=== PATIENT | male | born 1970 | race Caucasian/White ===

== ENCOUNTER 2023-11-17 17:00 | Emergency (ER) | payer BC, SELFPAY ==
[2023-11-17 17:21] VITALS: BP 149/91; PULSE 119; RESP 18; TEMP 37.6; O2SAT 95; BMI 25.8
--- NOTE | 2023-11-17 17:32 | XRR_ITS ---
PROCEDURE INFORMATION: Exam: XR Chest Exam date and time: 11/17/2023 6:15 PM Age: 53 years old Clinical indication: Cough and fever and wheezing; Patient HX: Fever; Cough; Congestion TECHNIQUE: Imaging protocol: Radiologic exam of the chest. Views: 2 views. COMPARISON: CR (CHEST, ) 11/17/2023 5:40 PM FINDINGS: Lungs: Unremarkable. No consolidation. Pleural spaces: Unremarkable. No pleural effusion. No pneumothorax. Heart/Mediastinum: Unremarkable. No cardiomegaly. Bones/joints: Unremarkable. XR/XR chest 2V* [id number] IMPRESSION: No acute findings.
[2023-11-17] MEDS: ibuprofen 600 mg Tablet PO (17:49)
[2023-11-17] MEDS: sodium chloride 0.9% 1,000 ML 999 ML IV ×2 (17:49→20:38)
[2023-11-17 17:50] LABS: Rapid Strep A Test Negative (Negative)
[2023-11-17 17:54] LABS: SARS Covid-2 Antigen negative (Negative)
--- NOTE | 2023-11-17 17:58 | ED_ITS ---
HPI - Fever 2 General: Chief Complaint: Fever Stated Complaint: Fever,congetstion Time Seen by Provider: 11/17/23 17:19 History of Present Illness: Mr. Medina is a 53-year-old man that presents to the emergency department with fever, cough, headache and body aches. Onset of symptoms 11/13. Patient states this started with a headache and bodyaches and quickly developed a fever. He has been treating the fever with ibuprofen and Tylenol but today he ran a fever in spite of Tylenol and ibuprofen. Patient is also developed a sore throat today. He denies productive cough He denies chest pain Denies abdominal pain, nausea vomiting or diarrhea. Patient's medical history includes hypertension. Denies cardiovascular disease, chronic pulmonary disorders, or renal dysfunction. Associated symptoms: Deny abdominal pain, chills, chest pain, confusion, diarrhea, dysuria, extremity pain, headache(s), nasal congestion, nausea, sinus pain or vomiting Review of Systems 2 General: Reports: 10 or more systems reviewed and unremarkable except in HPI and below Const: Reports: fever(s), body aches, change in appetite and fatigue; Denies: chills, change in weight or malaise ENMT: Reports: throat pain, hoarseness and nasal discharge; Denies: ear or mastoid pain, ear discharge, change in hearing, tinnitus, nasal congestion, post nasal drip or sinus pain Card: Denies: chest pain, palpitations, irregular heart rhythm, edema, dyspnea on exertion, orthopnea or leg pain with exertion Resp: Reports: non-productive cough and chest congestion; Denies: dyspnea, productive cough, wheezing or stridor GI: Denies: abdominal pain, nausea, vomiting, diarrhea, constipation, bloating or GI cramping : Denies: dysuria, urinary frequency or urinary urgency Musc: Denies: neck pain, back pain, extremity pain, joint pain or muscle weakness Skin/Breast: Denies: rash or pruritus Neuro: Denies: headache(s), dizziness or confusion Endo: Denies: polyuria, polydipsia or tired all the time Tanner/Lymph: Denies: easy bruising or easy bleeding Physical Exam 2 Const: COMMON NORMALS: no acute distress, patient oriented x3 and alert G ENERAL APPEARANCE: cooperative ORIENTATION/CONSCIOUSNESS: Yes awake, Yes oriented to person, Yes oriented to place and Yes oriented to time HENMT: COMMON NORMALS: normocephalic and atraumatic HEAD & SCALP: n ormocephalic and atraumatic FACE & SINUS: normal facial exam MOUTH: Normal oral and palatal mucosa present Eye: COMMON NORMALS: Equal, round and reactive pupils present, EOMs intact bilaterally, conjunctivae normal and no scleral icterus GENERAL EYE: a ppearance normal, both eyes and all related structures ALIGNMENT: Yes alignment normal PERIORBITAL: periorbital findings normal CONJUNCTIVA: Yes conjunctivae normal PUPIL: Yes Equal, round and reactive pupils present Neck/C-Spine: COMMON NORMALS: full ROM GENERAL: Yes normal visual inspection Lymph: LYMPHATIC: no lymphadenopathy noted Chest: COMMONS NORMALS: normal inspection of the chest Breast/axilla inspection: Yes no chest deformity, asymmetry, normal contours, no nodules, masses, tenderness Resp: COMMON NORMALS: normal respiratory effort, No retractions, No use of accessory muscles and clear to auscultation bilaterally EFFORT & INSPECTION: Yes able to speak in complete sentences and Yes symmetric chest movement A USCULTATION: clear to auscultation bilaterally Cardio: COMMON NORMALS: regular rate, regular rhythm and Peripheral pulses 2+ throughout RATE: regular rate RHYTHM: regular rhythm PERIPHERAL PULSES: Peripheral pulses 2+ throughout GI: COMMON NORMALS: Normal to inspection, nondistended, normoactive bowel sounds present, Soft to palpation, non-tender and No hepatosplenomegaly present INSPECTION: Yes normal to inspection AUSCULTATION: Yes normoactive bowel sounds PALPATION: Yes Soft to palpation and Yes No hepatosplenomegaly present RECTAL EXAM: Yes deferred Extremity: COMMON NORMALS: normal to inspection GENERAL: Yes normal exam except as noted Neuro: COMMON NORMALS: patient oriented x3 SENSORIUM/ORIENTATION: Yes alert, Yes oriented to person, Yes oriented to place and Yes oriented to time CRANIAL NERVES: Yes CN normal except as noted Psych: COMMON NORMALS: mental status grossly normal, Normal thought process present, cooperative, activity/motor behavior normal, denies homicidal ideation and denies suicidal ideation THOUGHT PROCESS: Normal thought process present Skin: COMMON NORMALS: no rashes or lesions noted, no wounds and turgor normal GENERAL SKIN EXAM: no rashes or lesions noted and turgor normal Course 2 Vital Signs: Vital signs: Vital Signs Temperature 99.7 F H 11/17/23 17:21 Pulse Rate 120 H 11/17/23 18:22 Respiratory Rate 18 11/17/23 18:22 Blood Pressure 135/85 11/17/23 18:22 Pulse Oximetry 96 11/17/23 18:22 Oxygen Delivery Me thod Room Air 11/17/23 18:22 MDM - Fever Medical Decision Making Patient was evaluated in the emergency department today for upper respiratory illness complaints. Differential diagnosis includes: influenza, COVID, bronchiolitis, pneumonia Patient underwent diagnostic testing that included a chest x-ray, influenza and COVID testing. Chest x-ray reveals no acute finding Influenza be positive. It has been 4 days since onset of symptoms and at this point I do not think Tamiflu would be of any use for him. I talked with patient about using [id number]-woq-[id number] remedies such as Mucinex and decongestants. Advised him to continue ibuprofen and acetaminophen for fever control. He should rest and drink plenty of fluids He did receive 1 L bolus However, patient remains tachycardic. In speaking with patient about his tachycardia and he reported to me that through the night he was alerted by his Fitbit to tachycardia at a rate of 180 beats a minute. EKG was obtained revealed sinus tachycardia without ectopy, ST elevation or abnormal T wave inversion. A second liter of normal saline was ordered as well as a CBC and CMP to evaluate for electrolyte disturbances. CBC and CMP did not reveal any leukocytosis or anemias. His platelet count with mildly low at 151,000. There is no electrolyte abnormality. Patient heart rate did continue to come down after second liter. Sitting right around 100 but heart rate increases to 109 after ambulation. He denies any shortness of breath with increased activity. He remains afebrile I have given the patient options of having more fluids and longer observation versus going home and increasing his fluids. He is elected to discharge home where he will increase his fluids and take [id number] remedies for symptoms. Initially the chest x-ray was read as negative; however, the imaging was reviewed and there is concern for patchy opacity in the bases that could represent atelectasis or infiltrate. Going to send the patient home on a prescription of doxycycline for secondary bacterial pneumonia. Patient is to return to the emergency department for new concerning or worsening symptoms Lab Data 11/17/23 20:28 11/17/23 20:28 Radiology Impressions Chest X-Ray 11/17/23 17:32 IMPRESSION: No acute findings. ADDENDUM: 11/17/23 1843 There is a streaky opacity on lateral view overlying the lung bases which may reflect atelectasis or infiltrate. Laboratory Results WBC 7.40 10^3/uL (3.29-11.43) 11/17/23 20: RBC 4.88 10^6/uL (3.85-5.65) 11/17/23 20: Hgb 14.70 g/dL (11.27-16.99) 11/17/23 20: Hct 43.6 % (37-53) 11/17/23 20: MCV 89.3 fl (82-101) 11/17/23 20: MCH 30.1 pg (27-33) 11/17/23 20: MCHC 33.7 g/dL (30-55) 11/17/23 20: RDW 11.9 % (12.1-15.1) L 11/17/23 20: Plt Count 151 10^3/cmm (157-399) L 11/17/23 20: MPV 9.5 fL (7.4-10.4) 11/17/23 20: Neut % (Auto) 80.1 % 11/17/23 20: Lymph % (Auto) 7.6 % 11/17/23 20: Gosper % (Auto) 11.6 % 11/17/23 20: Eos % (Auto) 0.3 % 11/17/23 20: Baso % (Auto) 0.1 % 11/17/23: Neut # (Auto) 5.93 10^3/uL (1.8-7.7) 11/17/23 20: Lymph # (Auto) 0.6 10^3/uL (0.8-4.8) L 11/17/23 20: Gosper # (Auto) 0.9 10^3/uL (0.2-0.9) 11/17/23 20: Eos # (Auto) 0.0 10^3/uL (0.0-0.8) 11/17/23 20: Baso # (Auto) 0.0 10^3/uL (0.0-0.1) 11/17/23 20:28 Nucleated RBC % (auto) 0 % 11/17/23 20: Nucleated RBCs # 0.0 /100WBC 11/17/23 20:28 Sodium 138 mmol/L (136-145) 11/17/23 20:28 Potassium 3.8 mmol/L (3.5-5.1) 11/17/23 20: Chloride 103 mmol/L (98-107) 11/17/23 20:28 Carbon Dioxide 25 mmol/L (22-29) 11/17/23 20:28 Anion Gap 13.8 (5-19) 11/17/23 20:28 BUN 7 mg/dL (6-20) 11/17/23 20:28 Creatinine 0.8 mg/dL (0.7-1.2) 11/17/23 20:28 GFR Calculation 101.9 mL/min (90-130) 11/17/23 20:28 Glucose 113 mg/dL (65-115) 11/17/23 20:28 Calculated Osmolality 285 mOsm/kg (285-295) 11/17/23 20:28 Calcium 8.4 mg/dL (8.5-10.5) L 11/17/23 20:28 Total Bilirubin 0.4 mg/dL (0.15-1.2) 11/17/23 20:28 AST 16 U/L (0-40) 11/17/23 20:28 ALT 11 U/L (0-41) 11/17/23 20:28 Alkaline Phosphatase 74 U/L (40-130) 11/17/23 20:28 Total Protein 6.8 g/dL (6.6-8.7) 11/17/23 20:28 Albumin 4.1 g/dL (3.5-5.2) 11/17/23 20:28 Globulin 2.7 g/dL (1.3-4.6) 11/17/23 20:28 Influenza Type A Ag Negative (Negative) 11/17/23 17:28 Influenza Type B Ag Positive (Negative) H 11/17/23 17:28 SARS-CoV-2 Ag (Rapid) negative (Negative) 11/17/23 17:28 Group A Strep Rapid Negative (Negative) 11/17/23 17:28 All radiology interpretation(s) finalized by discharge Discharge Plan Discharge Patient Disposition: Home Clinical Impression: Influenza Pneumonia Qualifiers: Pneumonia type: due to unspecified organism Laterality: bilateral Lung location: unspecified part of lung Qualified Code(s): J18.9 - Pneumonia, unspecified organism Condition: Stable Prescriptions: New doxycycline hyclate 100 mg tablet 100 mg PO BID 7 Days Qty: 14 0RF Discharge Orders: Discharge ED (Routine); Ordered 11/17/23 Ordered By: Davion Mayes Discharge Diet: Advance as tolerated Discharge Activity: Resume usual activity Patient Instructions: Pain Management, Influenza (ED), Pneumonia (ED) Activity Restrictions/Additional Instructions: Please continue to push fluids. Please use vzhx-ffd-[id number] remedies such as Tylenol Cold and flu, Sudafed or Mucinex to help with cough and congestion Please monitor your heart rate. Return to the emergency department for sustained tachycardia. Please use Tylenol and Motrin for fevers, body aches, headache I provided a prescription of doxycycline history of chest x-ray was reevaluated and the radiologist believes that he might have an area that could be the start of pneumonia. You are going to take doxycycline twice a day for the next 7 days. Please return to the emergency department if you develop any worsening symptoms Coding Level of Care Code ED [employer] for Larry Duran
[2023-11-17 18:16] LABS: Influenza A by IFA Negative (Negative); Influenza B by IFA Positive (Negative)
[2023-11-17 18:22] VITALS: BP 135/85; PULSE 120; RESP 18; O2SAT 96
[2023-11-17] MEDS: acetaminophen 500 mg Tablet 1000 MG PO (19:10)
--- NOTE | 2023-11-17 20:03 | ECG_ITS ---
[facility] Test Date: 2023-11-17 Pat Name: Vitaliy Medina Department: Room: Gender: Male [place]: : 1970 Requested By: Davion Galindo Order Number: [id number] Dora MD: Waqas Odom M.D. Measurements Intervals Circle Rate: 120 P: 37 ND: 173 QRS: 18 QRSD: 89 T: 20 QT: 293 QTc: 415 Interpretive Statements SINUS TACHYCARDIA No previous ECG available for comparison Electronically Signed On 11-18-2023 13:32:35 [facility] by Waqas Odom M.D. [email or web address]
[2023-11-17 20:33] LABS: Basophils % 0.1 %; Eosinophils % 0.3 %; Hematocrit 43.6 % (37-53); Lymphocytes # 0.6 10^3/uL (0.8-4.8); Lymphocytes % 7.6 %; Mean Corpuscular HGB Conc 33.7 g/dL (30-55); Mean Corpuscular Hemoglobin 30.1 pg (27-33); Mean Corpuscular Volume 89.3 fl (82-101); Mean Platelet Volume 9.5 fL (7.4-10.4); Monocytes # 0.9 10^3/uL (0.2-0.9); Monocytes % 11.6 %; Neutrophils # 5.93 10^3/uL (1.8-7.7); Neutrophils % 80.1 %; Nucleated Red Blood Cells % 0 %; Platelet Count 151 10^3/cmm (157-399); Red Blood Count 4.88 10^6/uL (3.85-5.65); Red Cell Distribution Width 11.9 % (12.1-15.1)
[2023-11-17 20:55] LABS: Alanine Aminotransferase 11 U/L (0-41); Albumin Level 4.1 g/dL (3.5-5.2); Alkaline Phosphatase 74 U/L (40-130); Anion Gap 13.8 (5-19); Aspartate Amino Transferase 16 U/L (0-40); Blood Urea Nitrogen 7 mg/dL (6-20); Calcium 8.4 mg/dL (8.5-10.5); Carbon Dioxide 25 mmol/L (22-29); Chloride 103 mmol/L (98-107); Globulin 2.7 g/dL (1.3-4.6); Glomerular Filtration Rate 101.9 mL/min (90-130); Glucose 113 mg/dL (65-115); Osmolality Calculated 285 mOsm/kg (285-295); Potassium 3.8 mmol/L (3.5-5.1); Sodium 138 mmol/L (136-145); Total Bilirubin 0.4 mg/dL (0.15-1.2); Total Protein 6.8 g/dL (6.6-8.7)
[2023-11-17 22:14] VITALS: BP 136/82; PULSE 105; RESP 16; O2SAT 95
== END 2023-11-17 22:16 | disposition home or self-care (01) ==
PROVIDERS: Emergency Medicine; Emergency Provider Nurse Practitioner
DX: J10.00 Influenza due to other identified influenza virus with unspecified type of pneumonia (principal); Z11.52 Encounter for screening for COVID-19
CPT/HCPCS: 36415; 71045; 71046; 80053; 85025; 87081; 87426; 87804; 87880; 93005; 96360; 99285; J7030